=== PATIENT | female | born 1955 | race Asian ===

== ENCOUNTER → 2017-02-10 | Outpatient (CLI) | payer OTHER ==
[2017-02-10 09:33] LABS: BASO % 0.3 %; BASO ABS # 0.02 K/uL (0-0.2); COMPLETE YES; HEMATOCRIT 42.3 % (37-47); LYMPH % 37.5 %; LYMPH ABS # 2.53 K/uL (1.2-3.4); MEAN CELL VOLUME 88.1 fL (80-100); MEAN CORPUSCULAR HEMOGLOBIN 28.5 pg (25-34); MEAN CORPUSCULAR HGB CONC 32.4 g/dl (32-36); MONO % 5.8 %; NEUT % 55.4 %; PLATELET COUNT 334 K/uL (130-400); WHITE BLOOD COUNT 6.74 K/uL (4.8-10.8)
[2017-02-10 10:16] LABS: URINE APPEARANCE CLEAR (CLEAR); URINE BILIRUBIN NEG (NEG); URINE COLOR YELLOW; URINE EPITHELIAL CELL AUTO >30 /lpf (0-5); URINE NITRITE NEG (NEG); URINE PH 7.5 (4.5-7.5); UROBILINOGEN NEG (NEG); ZZUR CULT IF INDIC CLEAN CATCH NO
[2017-02-10 10:18] LABS: MANUAL MICROSCOPIC REQUIRED? NO; REVIEW REQ? NO
[2017-02-10 10:21] LABS: ALB/GLOB RATIO 0.8 (0.9-2); ALKALINE PHOSPHATASE 92 U/L (45-117); ALT/SGPT 30 U/L (12-78); AST/SGOT 17 U/L (15-37); BLOOD UREA NITROGEN 20 mg/dl (7-18); BUN/CREATININE RATIO 38.5 (10-20); CALCIUM 8.9 mg/dl (8.5-10.1); CARBON DIOXIDE 30 mmol/L (21-32); CHLORIDE 103 mmol/L (98-107); CREATININE 0.51 mg/dl (0.60-1.20); GLUCOSE 102 mg/dl (70-99); MAGNESIUM 2.3 mg/dl (1.8-2.4); POTASSIUM 3.2 mmol/L (3.5-5.1); SODIUM 141 mmol/L (136-145)
[2017-02-10 10:24] LABS: AMYLASE 91 U/L (25-115)
== END | disposition home or self-care (01) ==
LOC: C.LAB1850 08:35
PROVIDERS: ATTEND Nurse Practitioner
DX: R10.13 Epigastric pain (principal); R10.11 Right upper quadrant pain; I10 Essential (primary) hypertension

== ENCOUNTER 2018-02-18 14:34 | Emergency (ER) | payer OTHER ==
[~2018-02-18] VITALS: Ht 144.8 cm; Wt 62.8 kg
[2018-02-18 14:38] VITALS: TEMP 36.9; Ht 144.8 cm; Wt 62.8 kg
[2018-02-18 14:58] VITALS: O2SAT 95
[2018-02-18] MEDS ORDERED: NITROGLYCERIN 0.4 MG SL PER TAB CHARGE SL PRN (15:15)
[2018-02-18] MEDS ORDERED: ATOR10TA82 PO (15:39)
[2018-02-18] MEDS ORDERED: RANI150T85 PO (15:39)
[2018-02-18] MEDS ORDERED: LISI-461 PO (15:39)
--- NOTE | 2018-02-18 15:56 | DIAGNOSTIC IMAGING REPORT ---
SINGLE VIEW CHEST CLINICAL HISTORY: Atypical chest pain. FINDINGS: An AP, portable, upright chest radiograph is obtained. No prior studies are available for comparison at the time of dictation. The cardiomediastinal silhouette is unremarkable. The lungs and pleural spaces are clear. No pneumothorax is seen. The bony thorax is grossly intact. IMPRESSION: No active disease in the chest. Electronically signed by: Dylan Malagon M.D. 02/18/2018 3:55 PM Dictated Date/Time: 02/18/2018 3:54 PM
[2018-02-18 16:22] LABS: BASO % 0.4 %; BASO ABS # 0.02 K/uL (0-0.2); EOS % 1.3 %; EOS ABS # 0.07 K/uL (0-0.5); HEMATOCRIT 38.9 % (37-47); HEMOGLOBIN 13.1 g/dL (12.0-16.0); IG# 0.01 K/uL (0.00-0.02); LYMPH % 38.5 %; LYMPH ABS # 2.14 K/uL (1.2-3.4); MEAN CELL VOLUME 87.6 fL (80-100); MEAN CORPUSCULAR HEMOGLOBIN 29.5 pg (25-34); MEAN CORPUSCULAR HGB CONC 33.7 g/dl (32-36); MONO % 6.8 %; MONO ABS # 0.38 K/uL (0.11-0.59); NEUT % 52.8 %; NEUT ABS # 2.94 K/uL (1.4-6.5); PLATELET COUNT 290 K/uL (130-400); RED CELL DISTRIBUTION WIDTH SD 41.6 fL (36.4-46.3); WHITE BLOOD COUNT 5.56 K/uL (4.8-10.8)
--- NOTE | 2018-02-18 16:32 | DIAGNOSTIC IMAGING REPORT ---
CT OF THE HEAD WITHOUT CONTRAST CLINICAL HISTORY: Dizziness. COMPARISON STUDY: No previous studies for comparison. CT DOSE: 731.25 mGycm TECHNIQUE: Helical axial images of the head were obtained without IV contrast. Automated exposure control was utilized for the study. A dose lowering technique was utilized adhering to the principles of ALARA. FINDINGS: No acute intracranial hemorrhage, midline shift or mass effect is present. Brain volume is normal. Ventricular system is normal. Basilar cisterns are patent. There are no extra-axial collections. There are small hypodensities within the bilateral basal ganglia. There is a 1.3 cm hypodensity within the white matter of the right frontal lobe. No findings are noted to suggest acute dural sinus thrombosis or acute territorial infarct. Visualized portions of the sinuses and mastoid air cells are clear. There are no significant calvarial abnormalities. IMPRESSION: 1. No acute intracranial findings. 2. Hypodensities within the right frontal lobe and bilateral basal ganglia which favor prominent perivascular spaces although old lacunar infarcts could appear similar. Electronically signed by: Andre Villarreal M.D. 02/18/2018 4:31 PM Dictated Date/Time: 02/18/2018 4:28 PM
[2018-02-18 16:47] LABS: ALBUMIN 3.4 gm/dl (3.4-5.0); ALKALINE PHOSPHATASE 82 U/L (45-117); ALT/SGPT 24 U/L (12-78); AST/SGOT 16 U/L (15-37); BLOOD UREA NITROGEN 13 mg/dl (7-18); CALCIUM 8.7 mg/dl (8.5-10.1); CARBON DIOXIDE 26 mmol/L (21-32); CKMB < 1.0 ng/ml (0.5-3.6); CREATININE 0.53 mg/dl (0.60-1.20); GLUCOSE 96 mg/dl (70-99); LIPASE 323 U/L (73-393); POTASSIUM 3.6 mmol/L (3.5-5.1); SODIUM 140 mmol/L (136-145); TOTAL PROTEIN 7.6 gm/dl (6.4-8.2)
--- NOTE | 2018-02-18 17:00 | EMERGENCY ROOM VISIT NOTE ---
History First contact with patient: 14:52 Chief Complaint: CHEST PAIN Stated Complaint: CHEST PAIN Nursing Triage Summary: chest pain and shortness of breath for the past 10 days. seems to be worse at night. patient speaks italian and would like bank representative. History of Present Illness The patient is a 62 year old female who does not speak [place] presents to the Emergency Room with her daughter being sent here by [facility] with complaints of chest pain and dizziness for 10 days. The patient states yesterday she started with pain in the left side of her neck and down her arm. The patient denies admits to shortness of breath. She states her symptoms are worse at night. She has difficulty describing the type of chest pain. The patient denies any recent heartburn. She is on medication which seems to control her heartburn. Patient does not smoke. The patient denies any visual changes or headache. There is no family history of CAD. There is a family history of valvular heart disease. The patient denies any swelling in her legs or any calf pain. Review of Systems 10 system review was performed and was negative unless stated otherwise history of present illness. Past Medical/Surgical History No significant past medical history Social History Smoking Status: Never Smoker Alcohol Use: none Drug Use: none Current/Historical Medications Scheduled Atorvastatin (Lipitor), 10 MG PO DAILY Lisinopril (Zestril), 10 MG PO DAILY Ranitidine (Zantac), 150 MG PO BID Physical Exam Vital Signs Date Time Temp Pulse Resp B/P (MAP) Pulse Ox O2 Delivery O2 Flow Rate FiO2 02/18/18 15:31 141/92 02/18/18 15:29 70 20 02/18/18 15:24 71 18 02/18/18 15:19 69 22 02/18/18 15:14 73 19 94 02/18/18 15:09 77 23 94 02/18/18 15:04 80 13 98 02/18/18 15:01 152/96 02/18/18 15:00 79 02/18/18 14:59 82 17 95 02/18/18 14:58 95 Room Air 02/18/18 14:57 141/99 02/18/18 14:38 36.9 82 18 157/96 99 Room Air Physical Exam GENERAL: 62-year-old female appears in no acute distress. MENTAL Status: Alert and oriented 3. The patient does not speak [place]. EYES: PERRLA. EOMs intact. EARS: Canals clear. TMs without fluid level noted. NECK: Supple, no lymphadenopathy noted. No carotid bruits noted. LUNGS: Clear auscultation without wheezes rales or rhonchi. CARDIAC: Regular rate and rhythm without murmur. Pulses is full and equal throughout. NEURO:Cranial nerves two through 12 intact. Cerebellar function intact with [id number]. Fine motor intact with alternating finger motions. LOWER EXTREMITIES: No cyanosis or edema noted. Calves are nontender. Medical Decision & Procedures ER Provider Diagnostic Interpretation: CT OF THE HEAD WITHOUT CONTRAST CLINICAL HISTORY: Dizziness. COMPARISON STUDY: No previous studies for comparison. CT DOSE: 731.25 mGycm TECHNIQUE: Helical axial images of the head were obtained without IV contrast. Automated exposure control was utilized for the study. A dose lowering technique was utilized adhering to the principles of ALARA. FINDINGS: No acute intracranial hemorrhage, midline shift or mass effect is present. Brain volume is normal. Ventricular system is normal. Basilar cisterns are patent. There are no extra-axial collections. There are small hypodensities within the bilateral basal ganglia. There is a 1.3 cm hypodensity within the white matter of the right frontal lobe. No findings are noted to suggest acute dural sinus thrombosis or acute territorial infarct. Visualized portions of the sinuses and mastoid air cells are clear. There are no significant calvarial abnormalities. IMPRESSION: 1. No acute intracranial findings. 2. Hypodensities within the right frontal lobe and bilateral basal ganglia which favor prominent perivascular spaces although old lacunar infarcts could appear similar. Electronically signed by: Andre Villarreal M.D. 02/18/2018 4:31 PM SINGLE VIEW CHEST CLINICAL HISTORY: Atypical chest pain. FINDINGS: An AP, portable, upright chest radiograph is obtained. No prior studies are available for comparison at the time of dictation. The cardiomediastinal silhouette is unremarkable. The lungs and pleural spaces are clear. No pneumothorax is seen. The bony thorax is grossly intact. IMPRESSION: No active disease in the chest. Electronically signed by: Dylan Malagon M.D. 02/18/2018 3:55 PM Laboratory Results 02/18/18 16:10 Red Blood Count 4.44, Mean Corpuscular Volume 87.6, Mean Corpuscular Hemoglobin 29.5, Mean Corpuscular Hemoglobin Concent 33.7, Mean Platelet Volume 9.0, Neutrophils (%) (Auto) 52.8, Lymphocytes (%) (Auto) 38.5, Monocytes (%) (Auto) 6.8, Eosinophils (%) (Auto) 1.3, Basophils (%) (Auto) 0.4, Neutrophils # (Auto) 2.94, Lymphocytes # (Auto) 2.14, Monocytes # (Auto) 0.38, Eosinophils # (Auto) 0.07, Basophils # (Auto) 0.02 02/18/18 16:10 Test 02/18/18 16:10 02/18/18 16:18 White Blood Count 5.56 K/uL (4.8-10.8) Red Blood Count 4.44 M/uL (4.2-5.4) Hemoglobin 13.1 g/dL (12.0-16.0) Hematocrit 38.9 % (37-47) Mean Corpuscular Volume 87.6 fL (80-100) Mean Corpuscular Hemoglobin 29.5 pg (25-34) Mean Corpuscular Hemoglobin Concent 33.7 g/dl (32-36) Platelet Count 290 K/uL (130-400) Mean Platelet Volume 9.0 fL (7.4-10.4) Neutrophils (%) (Auto) 52.8 % Lymphocytes (%) (Auto) 38.5 % Monocytes (%) (Auto) 6.8 % Eosinophils (%) (Auto) 1.3 % Basophils (%) (Auto) 0.4 % Neutrophils # (Auto) 2.94 K/uL (1.4-6.5) Lymphocytes # (Auto) 2.14 K/uL (1.2-3.4) Monocytes # (Auto) 0.38 K/uL (0.11-0.59) Eosinophils # (Auto) 0.07 K/uL (0-0.5) Basophils # (Auto) 0.02 K/uL (0-0.2) RDW Standard Deviation 41.6 fL (36.4-46.3) RDW Coefficient of Variation 13.0 % (11.5-14.5) Immature Granulocyte % (Auto) 0.2 % Immature Granulocyte # (Auto) 0.01 K/uL (0.00-0.02) Anion Gap 7.0 mmol/L (3-11) Est Creatinine Clear Calc Drug Dose 85.0 ml/min Estimated GFR () 118.8 Estimated GFR (Non- 102.5 BUN/Creatinine Ratio 25.1 (10-20) Calcium Level 8.7 mg/dl (8.5-10.1) Total Bilirubin 0.2 mg/dl (0.2-1) Direct Bilirubin < 0.1 mg/dl (0-0.2) Aspartate Amino Transf (AST/SGOT) 16 U/L (15-37) Alanine Aminotransferase (ALT/SGPT) 24 U/L (12-78) Alkaline Phosphatase 82 U/L (45-117) Total Creatine Kinase 84 U/L (26-192) Creatine Kinase MB < 1.0 ng/ml (0.5-3.6) Creatine Kinase MB Ratio (0-3.0) Troponin I < 0.015 ng/ml (0-0.045) Pro-B-Type Natriuretic Peptide 81 pg/ml (0-900) Total Protein 7.6 gm/dl (6.4-8.2) Albumin 3.4 gm/dl (3.4-5.0) Lipase 323 U/L (73-393) Medications Administered Medications (Trade) Dose Ordered Sig/Jcak Route Start Time Stop Time Status Last Admin Dose Admin Nitroglycerin (Nitrostat Tab) 0.4 mg PRN PRN SL 02/18/18 15:15 03/20/18 15:14 02/18/18 15:32 0.4 MG ECG Per My Interpretation Indication: chest pain Rhythm: normal sinus Findings: Q waves Comparison ECG Date: no prior available ED Course Patient was evaluated. EKG was ordered interpreted by myself with Q waves noted in lead III. No ST elevation noted. IV access was obtained. Patient placed on a monitor and continuous pulse ox. The patient was given nitroglycerin sublingual. The patient's chest pain was relieved with the nitroglycerin but she continued to complain of left-sided neck pain. CBC and differential, renal profile, coags, CK-MB, troponin was ordered. Chest x-ray was ordered and interpreted by the radiologist as above without any acute findings. CT of the head was ordered interpreted by the radiologist as above without any acute findings. Labs are reviewed and were unremarkable. First troponin was less than 0.015. A second troponin was pending at the end of my shift therefore the case was signed out to Severiano Hogan PA-C. Please see his note for the remainder of patient care Medical Decision Differential diagnosis include valvular heart disease, acute DE, angina, muscular chest wall strain, pleuritic chest pain [facility] Monitoring Program Search Results: patient reviewed within database Medication Reconcilliation Current Medication List: was personally reviewed by me Impression Primary Impression: CHEST PAIN, UNSPECIFIED Departure Information Dispostion Still a Patient Condition GOOD Referrals Roselia Falk, C.R.N.P. (PCP) Patient Instructions My [facility]
[2018-02-18 17:06] LABS: PTT PATIENT 27.9 SECONDS (21.0-31.0)
[2018-02-18 20:13] VITALS: BP 173/116; PULSE 78; O2SAT 97
--- NOTE | 2018-02-19 12:16 | EMERGENCY ROOM VISIT NOTE ---
ED Visit Note First contact with patient: 16:59 62-year-old female whose care was transferred to [place] from Ailyn Sanon PA-C at change of shift. The patient presented to the emergency department with primary complaint of chest pain. At the time of transfer of care, a repeat troponin was pending. That repeat troponin was normal, with labs summarized below: Results Past 24 Hours Test 02/18/18 16:10 02/18/18 18:07 Range/Units White Blood Count 5.56 4.8-10.8 K/uL Red Blood Count 4.44 4.2-5.4 M/uL Hemoglobin 13.1 12.0-16.0 g/dL Hematocrit 38.9 37-47 % Mean Corpuscular Volume 87.6 80-100 fL Mean Corpuscular Hemoglobin 29.5 25-34 pg Mean Corpuscular Hemoglobin Concent 33.7 32-36 g/dl Platelet Count 290 130-400 K/uL Mean Platelet Volume 9.0 7.4-10.4 fL Neutrophils (%) (Auto) 52.8 % Lymphocytes (%) (Auto) 38.5 % Monocytes (%) (Auto) 6.8 % Eosinophils (%) (Auto) 1.3 % Basophils (%) (Auto) 0.4 % Neutrophils # (Auto) 2.94 1.4-6.5 K/uL Lymphocytes # (Auto) 2.14 1.2-3.4 K/uL Monocytes # (Auto) 0.38 0.11-0.59 K/uL Eosinophils # (Auto) 0.07 0-0.5 K/uL Basophils # (Auto) 0.02 0-0.2 K/uL RDW Standard Deviation 41.6 36.4-46.3 fL RDW Coefficient of Variation 13.0 11.5-14.5 % Immature Granulocyte % (Auto) 0.2 % Immature Granulocyte # (Auto) 0.01 0.00-0.02 K/uL Prothrombin Time 10.4 9.0-12.0 SECONDS Prothromb Time International Ratio 1.0 0.9-1.1 Activated Partial Thromboplast Time 27.9 21.0-31.0 SECONDS Partial Thromboplastin Ratio 1.1 Sodium Level 140 136-145 mmol/L Potassium Level 3.6 3.5-5.1 mmol/L Chloride Level 107 98-107 mmol/L Carbon Dioxide Level 26 21-32 mmol/L Anion Gap 7.0 3-11 mmol/L Blood Urea Nitrogen 13 7-18 mg/dl Creatinine 0.53 0.60-1.20 mg/dl Est Creatinine Clear Calc Drug Dose 85.0 ml/min Estimated GFR () 118.8 Estimated GFR (Non- 102.5 BUN/Creatinine Ratio 25.1 10-20 Random Glucose 96 70-99 mg/dl Calcium Level 8.7 8.5-10.1 mg/dl Total Bilirubin 0.2 0.2-1 mg/dl Direct Bilirubin < 0.1 0-0.2 mg/dl Aspartate Amino Transf (AST/SGOT) 16 15-37 U/L Alanine Aminotransferase (ALT/SGPT) 24 12-78 U/L Alkaline Phosphatase 82 45-117 U/L Total Creatine Kinase 84 26-192 U/L Creatine Kinase MB < 1.0 0.5-3.6 ng/ml Creatine Kinase MB Ratio 0-3.0 Troponin I < 0.015 < 0.015 0-0.045 ng/ml Pro-B-Type Natriuretic Peptide 81 0-900 pg/ml Total Protein 7.6 6.4-8.2 gm/dl Albumin 3.4 3.4-5.0 gm/dl Lipase 323 73-393 U/L When I returned to discuss findings with the patient and daughter, the daughter was not present. The patient is [place] and does not speak Malay. The daughter had gone home, and the ED was going to call her when the patient was ready for discharge. Through the interpretation telephone line, findings were discussed with the patient. The patient denied any chest pain or shortness of breath. She was complaining of a persistent headache and inability to sleep at nighttime. She reports that this has been an ongoing issue for several weeks. I did review other workup that was performed today, showing that the patient did have a head CT that did not show any acute findings. That report is summarized below: CT OF THE HEAD WITHOUT CONTRAST CLINICAL HISTORY: Dizziness. COMPARISON STUDY: No previous studies for comparison. CT DOSE: 731.25 mGycm TECHNIQUE: Helical axial images of the head were obtained without IV contrast. Automated exposure control was utilized for the study. A dose lowering technique was utilized adhering to the principles of ALARA. FINDINGS: No acute intracranial hemorrhage, midline shift or mass effect is present. Brain volume is normal. Ventricular system is normal. Basilar cisterns are patent. There are no extra-axial collections. There are small hypodensities within the bilateral basal ganglia. There is a 1.3 cm hypodensity within the white matter of the right frontal lobe. No findings are noted to suggest acute dural sinus thrombosis or acute territorial infarct. Visualized portions of the sinuses and mastoid air cells are clear. There are no significant calvarial abnormalities. IMPRESSION: 1. No acute intracranial findings. 2. Hypodensities within the right frontal lobe and bilateral basal ganglia which favor prominent perivascular spaces although old lacunar infarcts could appear similar. I did encourage the patient to follow-up with her PCP for recheck within the next few days for further reevaluation and possible cardiology referral. I also encouraged her to discuss her ongoing headache issue. When she asked what she could take for her headache, I recommended Tylenol. She wanted to know what she could also take to help her sleep, and Benadryl was recommended. I suggested that she discuss other possible treatment options for insomnia with her PCP. The patient was instructed to return to the emergency department for any persistent or worsening chest pain, shortness of breath, developing fever or other concerning neurologic symptoms. The patient voiced understanding of this conversation through the interpretation telephone services, and was happy with plan of care, she refused any additional analgesics prior to discharge. The case was discussed with Dr. Hurd, ED attending physician prior to Mrs. Eubanks' departure with plan for discharge if a repeat troponin was normal. DIAGNOSIS: 1. Chest pain 2. Headache 3. Insomnia
== END 2018-02-18 20:20 | disposition home or self-care (01) ==
LOC: C.EDB 14:36
DX: R07.9 Chest pain, unspecified (principal); R51 Headache; G47.00 Insomnia, unspecified; Z82.49 Family history of ischemic heart disease and other diseases of the circulatory system